=== PATIENT | male | born 2000 | race Caucasian/White ===

== ENCOUNTER 2022-05-17 19:42 | Emergency (ER) | payer BC, SELFPAY ==
[2022-05-17 19:45] VITALS: BP 108/68; PULSE 81; RESP 16; TEMP 37; O2SAT 98
[2022-05-17] MEDS: Lidocaine 1% Pres-Free 5 ML VIAL (20:54)
--- NOTE | 2022-05-17 21:05 | ED.GENADUL_ITS ---
Discharge Plan Disposition Patient Disposition: Home Discharge Details Clinical Impression: Laceration of left little finger Primary Care Provider: None,None ED Provider: Sandra Mattson Discharge Instructions Instructions: Finger Laceration (ED) Additional Instructions: Suture removal in 10-12 days Keep clean and dry should you develop redness, swelling, fever, worsening pain, please be reassessed Bacitracin day 7 so we may easily remove the sutures You may take ibuprofen and Tylenol as needed for pain Discharge Data Discharge Date/Time-TO BE ENTERED AT DEPARTURE: 05/17/22 21:20 Medical Decision Making Patient appears well, presenting after laceration to finger Tetanus up-to-date Placed 2 vertical mattress sutures without incident Remains neurovascularly intact Suture removal in 10 to 12 days recommended Ibuprofen and Tylenol as needed for pain Return precautions reviewed and patient expressed understanding Medical Records Medical records reviewed: Yes I reviewed the patient's medical records. HPI General Date/Time Provider Initiated Documentation: 05/17/22 20:38 . HPI Narrative: This 21-year-old gentleman presents with laceration to left third digit while cutting avocado. Tetanus up-to-date per patient. Denies any additional injuries. General Stated Complaint: Laceration EMIL: 4 PFS All Active Problems (Updated 05/17/22 @ 21:07 by VERONICA Wells) Laceration of left little finger (Acute) Social History Smoking/Tobacco Use Status: Never Smoking risk assessment performed?: Yes Alcohol Intake: never Substance use type: does not use Do you feel safe at home: Yes Do you feel safe in your relationship?: Yes Exam Extrem Other: Laceration noted, approximately 4 mm to left third digit, neurovascularly intact, neurovascularly intact Course Vital Signs Vital signs: Vital Signs Temperature 37.0 C 05/17/22 19:45 Pulse 81 05/17/22 19:45 Respiratory Rate 16 05/17/22 19:45 Blood Pressure 108/68 05/17/22 19:45 Pulse Oximetry 98 05/17/22 19:45 Temperature 37.0 C 05/17/22 19:45 Temperature Source Oral 05/17/22 19:45 Pulse 81 05/17/22 19:45 Respiratory Rate 16 05/17/22 19:45 Blood Pressure 108/68 05/17/22 19:45 Blood Pressure Position Sitting 05/17/22 19:45 Pulse Oximetry 98 05/17/22 19:45 Oxygen Delivery Method Room Air 05/17/22 19:45 Oxygen Flow Rate 0 05/17/22 19:45 Pain Level 2 05/17/22 19:45 Procedures Laceration Laceration 1: Site: hand Side (If applicable): left Description: linear Depth: simple, single layer Amount of anesthesia used (mL): 3 Pre-repair: wound explored Skin layer closed with: nylon Number of sutures: 2 Technique: other
== END 2022-05-17 21:20 | disposition home or self-care (01) ==
PROVIDERS: Emergency Provider Physician Assistant
DX: S61.217A Laceration without foreign body of left little finger without damage to nail, initial encounter (principal); W26.0XXA Contact with knife, initial encounter
CPT/HCPCS: 12001

== ENCOUNTER 2023-07-05 07:34 | Emergency (ER) | payer BC, SELFPAY ==
[2023-07-05 07:38] VITALS: BP 137/71; PULSE 65; RESP 16; TEMP 36.9; O2SAT 100
--- NOTE | 2023-07-05 07:57 | W.ED.GENAD ---
Discharge Plan Disposition Patient Disposition: Home Condition: Improving Discharge Details Chief Complaint: Abd Prob Clinical Impression: Abdominal pain Primary Care Provider: Unknown,Unknown ED Provider: Michoacano Baker Home Meds and New Rx's Prescriptions: No Action No Known Home Meds Discharge Instructions Instructions: Abdominal Pain (ED) Additional Instructions: Please ensure proper fluid intake during the day especially in settings of physical activity and supplement use. Please return to the emergency department for any worsening symptoms. HPI General Date/Time Provider Initiated Documentation: 07/05/23 07:47. HPI Narrative: 22-year-old male history of testicular cyst, presents with abdominal discomfort right lower quadrant that awoke him this morning, had mid abdominal discomfort on Wednesday, mild nausea, no vomiting. Normal bowel movements. 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 Patient denies testicular discomfort or urinary issues. Denies history of abdominal surgery. Related Data Home Medications Medication Instructions Recorded Confirmed Unknown [No Known Home Meds] 07/05/23 07/05/23 Allergies Allergy/AdvReac Type Severity Reaction Status Date / Time No Known Allergies Allergy Unverified 07/05/23 07:37 General Stated Complaint: Abd Prob EMIL: 3 Review of Systems Narrative: Review of Systems Constitutional: negative Eyes: negative ENT: negative Cardiovascular: negative Respiratory: negative Gastrointestinal: Abdominal pain, nausea : negative Musculoskeletal: negative Skin: negative Neurologic: negative Psych: negative Exam Narrative Exam Narrative: Physical Examination General: alert, awake, cooperative, resting comfortably, no acute distress HEENT: normocephalic, atraumatic; PERRL, EOM intact, conjunctiva normal; no nasal discharge; moist mucous membranes Neck: supple, trachea midline; full ROM Chest: normal to inspection Respiratory: normal respiratory effort, speaking in full sentences GI: abdomen soft, mild discomfort right lower quadrant without guarding or rebounding, nondistended no palpable masses : Normal external genitalia, no palpable masses to testes, no testicular tenderness on palpation, normal lie, normal rugae, cremasteric reflex intact Skin: no lesions, rashes or trauma appreciated Neuro: AAOx3, normal speech, moving all extremities Psych: Appropriate mood and affect Course Vital Signs Vital signs: Vital Signs Temperature 36.9 C 07/05/23 07:38 Pulse 65 07/05/23 07:38 Respiratory Rate 16 07/05/23 07:38 Blood Pressure 137/71 07/05/23 07:38 Pulse Oximetry 100 07/05/23 07:38 Temperature 36.9 C 07/05/23 07:38 Temperature Source Temporal Artery Scan 07/05/23 07:38 Pulse 65 07/05/23 07:38 Respiratory Rate 16 07/05/23 07:38 Respiratory Effort Normal, Non-Labored 07/05/23 07:44 Blood Pressure 137/71 07/05/23 07:38 Blood Pressure Position Sitting 07/05/23 07:38 Pulse Oximetry 100 07/05/23 07:38 Oxygen Delivery Method Room Air 07/05/23 07:38 Oxygen Flow Rate 0 07/05/23 07:38 Pain Level 3 07/05/23 07:38 Medical Decision Making 22-year-old male history of testicular cyst, presents with abdominal discomfort over the last couple of days began as mid abdominal discomfort now localized in right lower quadrant, woke up this morning with worse pain and nausea, no vomiting, denies testicular pain or urinary symptomatology, patient afebrile nontoxic, discrete discomfort right lower quadrant without guarding or rebounding on examination, no distention or palpable masses, patient is moist mucous membranes, no active vomiting, does have mild nausea. Consider early appendicitis versus mesenteric adenitis versus electrolyte derangement versus dehydration versus muscular spasm versus less likely testicular pathology such as torsion or orchitis or epididymitis given no testicular complaint or urinary complaint lower suspicion for kidney stone. Will obtain basic labs inflammatory markers, will provide fluid analgesia anti-inflammatory, antiemetics, close reassessment, if signs of systemic inflammation such as leukocytosis or elevated inflammatory markers are present and patient's discomfort is not improved will consider CT abdomen pelvis to assess for appendicitis. 8: 20 patient resting comfortably no acute distress, normal external genitalia examination, normal cremasteric reflex, normal rugated normal lie no palpable mass or tenderness, no penile discharge 9: 51 patient resting comfortably feeling much better after fluids and medication. Labs and urinalysis unremarkable. Consider muscular strain versus cramping related to dehydration. Patient also endorsed that he had been taking creatine and may not have been taking necessary amount of water to keep up with further demands. Patient counseled regarding daily fluid intake as well as analgesia at home. Counseled to sit out of practice today to further recover. Given strict return precautions for any worsening symptoms. Quality:SDOH Health Related Social Needs: No Data to Display PFSH All Active Problems (Updated 07/05/23 @ 09:55 by Michoacano Baker MD) Abdominal pain (Acute) Social History Smoking/Tobacco Use Status: Never Smoking risk assessment performed?: Yes Alcohol Intake: never Drug use: Never Substance use type: does not use Housing: house Do you feel safe at home: Yes Do you feel safe in your relationship?: Yes
[2023-07-05 08:13] LABS: Abs Immature Grans 0.02 10^3/uL (0.0-0.06); Absolute Basophil Count 0.04 10^3/uL (0.0-0.2); Absolute Eosinophil Count 0.13 10^3/uL (0.0-0.7); Absolute Lymphocyte Count 2.07 10^3/uL (1.2-3.4); Absolute Monocyte Count 0.64 10^3/uL (0.1-0.8); Basophils % 0.6; Eosinophils % 1.9; HCT 48.2 % (40.0-50.0); HGB 16.3 g/dL (13.5-17.5); Immature Grans % 0.3; Lymphocytes % 30.9; MCHC 33.8 % (32.0-36.0); MCV 92 fL (80-95); MPV 9.3 fL (8.0-11.0); Monocytes % 9.6; Neutrophils % 56.7; Platelet Count 262 10^3/uL (130-400); RBC 5.26 10^6/uL (4.36-5.78); RDW 12.5 % (11.8-14.1); RDW-SD 42.3 fL
[2023-07-05 08:17] LABS: ESR 3 mm/hr (0-15)
[2023-07-05] MEDS: ACETAMINOPHEN 1,000 MG/100 ML BTL 400 MG IVPB (08:20)
[2023-07-05] MEDS: Normal Saline 1,000 ML 1000 ML IV (08:20)
[2023-07-05] MEDS: Ondansetron 4 MG/2 ML VIAL IVP (08:20)
[2023-07-05 08:29] LABS: ALT 55 U/L (16-63); AST 53 U/L (15-37); Albumin 3.9 g/dL (3.4-5.0); Alkaline Phosphatase 101 U/L (46-116); BUN 16 mg/dL (7-18); Bilirubin, Total 0.4 mg/dL (0.2-1.0); C-Reactive Protein < 0.50 mg/dL (<or=0.5); Calcium 9.1 mg/dL (8.5-10.1); Chloride 106 mmol/L (98-107); Glucose 99 mg/dL (74-106); Potassium 4.3 mmol/L (3.5-5.1); Sodium 143 mmol/L (136-145); Total Protein 7.6 g/dL (6.4-8.2)
[2023-07-05 08:44] LABS: Procalcitonin < 0.1 ng/mL
[2023-07-05 09:32] LABS: Bilirubin Negative (Negative); Blood Negative (Negative); Clarity Clear (Clear); Glucose Negative (Negative); Ketones Negative (Negative); Leukocyte Esterase Negative (Negative); Nitrite Negative (Negative); Urobilinogen 0.2 mg/dL (Up to 0.2)
[2023-07-05 09:56] VITALS: BP 147/90; PULSE 61; O2SAT 100
== END 2023-07-05 10:09 | disposition home or self-care (01) ==
PROVIDERS: Emergency Provider Emergency Medicine
DX: R10.31 Right lower quadrant pain (principal); R11.0 Nausea
CPT/HCPCS: 36415; 80053; 84145; 85652; 96361; 96374; 99284; 81003; 85025; 86140; J0131; J2405

== ENCOUNTER → 2023-07-28 15:49 | Outpatient (CLI) | payer BC, SELFPAY ==
--- NOTE | 2023-07-28 | DI.RAD_ITS ---
Exam(s) XR FOOT LT COMPLETE XR ANKLE LT COMPLETE EXAM: XR FOOT LT COMPLETE and XR ankle LT complete CLINICAL HISTORY: INJURY LT ANKLE/FOOT, S99.912A, [id number], ? FX/DISLOCATION, PAIN OVER 5TH MT. TECHNIQUE: 2D digital imaging was performed of the left ankle and foot. Six images were obtained. AP, oblique and lateral views were obtained. COMPARISON: No priors for comparison. FINDINGS: BONES: No acute fracture is present. No bony destructive lesion is seen. JOINTS: No dislocation present. The joint spaces are well maintained. SOFT TISSUE: Normal. IMPRESSION: No evidence of a fracture or dislocation of the ankle or foot. DATA REPOSITORY: RADIATION DOSE DELIVERED:
--- NOTE | 2023-07-28 | DI.RAD_ITS ---
Exam(s) XR FOOT LT COMPLETE XR ANKLE LT COMPLETE EXAM: XR FOOT LT COMPLETE and XR ankle LT complete CLINICAL HISTORY: INJURY LT ANKLE/FOOT, S99.912A, [id number], ? FX/DISLOCATION, PAIN OVER 5TH MT. TECHNIQUE: 2D digital imaging was performed of the left ankle and foot. Six images were obtained. AP, oblique and lateral views were obtained. COMPARISON: No priors for comparison. FINDINGS: BONES: No acute fracture is present. No bony destructive lesion is seen. JOINTS: No dislocation present. The joint spaces are well maintained. SOFT TISSUE: Normal. IMPRESSION: No evidence of a fracture or dislocation of the ankle or foot. DATA REPOSITORY: RADIATION DOSE DELIVERED:
== END ==
PROVIDERS: Visit Provider Physician Assistant
DX: S99.912A Unspecified injury of left ankle, initial encounter (principal); S99.922A Unspecified injury of left foot, initial encounter; X58.XXXA Exposure to other specified factors, initial encounter
CPT/HCPCS: 73610; 73630